=== PATIENT | female | born 1975 | race African-American/Black ===

== ENCOUNTER 2020-06-04 09:28 | Emergency (ER) | payer OTHER ==
--- NOTE | 2020-06-04 10:39 | RAD REPORT ---
EXAM DESCRIPTION: RAD - Knee Right 3 View - 06/04/2020 10:32 am CLINICAL HISTORY: PAIN COMPARISON: No comparisons FINDINGS: Mild medial compartment space arthritic changes. No acute fracture or dislocation suspecte d.
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
[2020-06-04 11:25] VITALS: TEMP 98.2; O2SAT 100
[2020-06-04 11:27] VITALS: BP 130/78
== END 2020-06-04 11:19 | disposition home or self-care (01) ==
LOC: ER 09:28
DX: S83.91XA Sprain of unspecified site of right knee, initial encounter (principal); S93.401A Sprain of unspecified ligament of right ankle, initial encounter; S39.012A Strain of muscle, fascia and tendon of lower back, initial encounter; V43.52XA Car driver injured in collision with other type car in traffic accident, initial encounter; Y93.89 Activity, other specified; Y92.410 Unspecified street and highway as the place of occurrence of the external cause
CPT/HCPCS: 72100; 99283